=== PATIENT | male | born 1955 | race Caucasian/White ===

== ENCOUNTER 2023-10-28 09:07 | Observation (INO) ==
--- NOTE | 2023-10-28 09:55 | DR.EXTPAIN ---
HPI Time seen Time Seen by Provider: 10/28/23 09:49 PCP Primary Care Physician: JAZ MIJARES HPI Comment HPI Comment: Cyst sacral area that is draining. Started on antibiotic on Saturday for same. Worse today. Complaint/Symptoms Chief Complaint Doctor Comments: History as above. Chief Complaint:: PT STATES HE SAW HIS PRIMARY CARE LAST SATURDAY AND HAD A CYST ON HIS SACRUM ABOVE ANUS. PT WAS GIVEN A PRESCRIPTION FOR AN ANTIBIOTIC AND SALVE. PT STATES IT HAS GOTTEN BIGGER AND IS DRAINING AND IS VERY PAINFUL Source History Provided: Patient Mode of arrival Mode of Arrival: Ambulatory Timing Onset of Chief Complaint: 10/23/23 PMH PMH Past Medical History: Yes Past Medical History: Coronary Artery Disease, Dyslipidemia and Renal Disease Past Medical History Comment: STAGE 3 CKD Past Surgical History: Yes Surgical History: Abdominal Surgery, Angioplasty/Stents and CABG/Valve Surgery Past Surgical History Comment: PACEMAKER Family History History of Family Medical Conditions: Yes Family Medical History: Cancer, Coronary Artery Disease and Hypertension Social History Does patient currently use any type of tobacco product: No Have you used tobacco products in the last 12 months: No Type of Tobacco Use: None Does any household member use tobacco: No Alcohol Use: None Do you use any recreational Drugs:: No Lives With: Dad Lives Where: Home Infectious screening In the last 2 months have you had wt loss of >10#?: NO Have you had fever, night sweats or hemotysis?: No Have you traveled outside the country in the last 6 months?: No Isolation: Standard ROS Review of Systems Constitutional: No Symptoms Reported Eyes: No Symptoms Reported ENTM: No Symptoms Reported Respiratoy: No Symptoms Reported Cardiovascular: No Symptoms Reported Gastrointestinal/Abdominal: No Symptoms Reported Genitourinary: No Symptoms Reported Neurological: No Symptoms Reported Musculoskeletal: Back Pain (sacral abscess, pain and swelling and redness.) Integumentary: No Symptoms Reported Hematologic/Lymphatic: No Symptoms Reported Endocrine: No Symptoms Reported Psychiatric: No Symptoms Reported All Other Systems: Reviewed and Negative PE Vital Signs Vitals: Vital Signs Temperature 97.7 F Pulse Rate 60 Respiratory Rate 20 Respiratory Rate 20 Blood Pressure 108/61 O2 Sat by Pulse Oximetry 96 General Limitations: No Limitations ROR Labs Reviewed 10/28/23 10:45 10/28/23 10:45 Laboratory: WBC 7.4 X10^3/uL (3.6-10.0) 10/28/23 10:45 RBC 4.03 X10^6/uL (4.7-6.0) L 10/28/23 10:45 Hgb 13.1 g/dL (13.5-18.0) L 10/28/23 10:45 Hct 37.8 % (42.0-54.0) L 10/28/23 10:45 MCV 93.7 fL (80.0-100.0) 10/28/23 10:45 MCH 32.5 pg (27.0-34.0) 10/28/23 10:45 MCHC 34.6 g/dL (33.0-35.0) 10/28/23 10:45 RDW 14.6 % (11.6-16.5) 10/28/23 10:45 Plt Count 144 X10^3/uL (150.0-450.0) L 10/28/23 10:45 MPV 9.3 fL (7.4-11.0) 10/28/23 10:45 Neut % (Auto) 82.8 % (42.0-75.0) H 10/28/23 10:45 Lymph % (Auto) 6.0 % (21.0-51.0) L 10/28/23 10:45 Power % (Auto) 10.1 % (0.0-13.0) 10/28/23 10:45 Eos % (Auto) 0.6 % (0.9-2.9) L 10/28/23 10:45 Baso % (Auto) 0.5 % (0.2-1.0) 10/28/23 10:45 Neut # (Auto) 6.1 x10^3/uL (2.2-4.8) H 10/28/23 10:45 Lymph # (Auto) 0.4 X10^3/uL (1.3-2.9) L 10/28/23 10:45 Power # (Auto) 0.7 x10^3/uL (0.3-0.8) 10/28/23 10:45 Eos # (Auto) 0.0 x10^3/uL (0.0-0.2) 10/28/23 10:45 Baso # (Auto) 0.0 X10^3/uL (0.0-0.1) 10/28/23 10:45 Absolute Nucleated RBC 0.1 /100WBC 10/28/23 10:45 Sodium 144 mmol/L (136-145) 10/28/23 10:45 Corrected Sodium TNP 10/28/23 10:45 Potassium 3.5 mmol/L (3.5-5.1) 10/28/23 10:45 Chloride 106 mmol/L (98-107) 10/28/23 10:45 Carbon Dioxide 30.8 mmol/L (21-32) 10/28/23 10:45 BUN 24 mg/dL (7-18) H 10/28/23 10:45 Creatinine 1.57 mg/dL (0.70-1.30) H 10/28/23 10:45 Est GFR (MDRD) Af Amer 57 (>60) L 10/28/23 10:45 Est GFR (MDRD) Non-Af 47 (>60) L 10/28/23 10:45 Glucose 95 mg/dL (65-99) 10/28/23 10:45 Calcium 8.7 mg/dL (8.5-10.1) 10/28/23 10:45 Corrected Calcium 9.7 mg/dL (8.5-10.1) 10/28/23 10:45 Total Bilirubin 1.20 mg/dL (0.2-1.0) H 10/28/23 10:45 AST 82 Units/L (15-37) H 10/28/23 10:45 ALT 109 Units/L (12-78) H 10/28/23 10:45 Alkaline Phosphatase 60 Units/L (46-116) 10/28/23 10:45 Total Protein 7.1 g/dL (6.4-8.2) 10/28/23 10:45 Albumin 2.8 g/dL (3.4-5.0) L 10/28/23 10:45 Globulin 4.3 g/dL (2.5-4.5) 10/28/23 10:45 Albumin/Globulin Ratio 0.7 Ratio (1.1-2.1) L 10/28/23 10:45 Opioid Opioid Risk Tool Age (Chris box if 16-45): No History of Preadolescent Sexual Abuse: No Total: 0 Total Score Risk Category: Low Risk Copyright: [facility] predicting aberrant behaviors Discharge Plan Diagnosis Discharge Problem: Abscess of buttock, Cellulitis Discharge Plan Patient Disposition: 01 HOME, SELF-CARE Condition: Stable Prescriptions: No Action furosemide 40 mg tablet 1 tab PO QDAY carvedilol 25 mg tablet 2 tab PO BID pravastatin 40 mg tablet 1 tab PO QDAY amiodarone 200 mg tablet 1 tab PO QDAY aspirin 81 mg tablet,delayed release (DR/EC) 1 tab PO QDAY ferrous sulfate [FeroSul] 325 mg (65 mg iron) tablet 1 tab PO QDAY lisinopril 10 mg tablet 1 tab PO BID warfarin 5 mg tablet PO digoxin 125 mcg (0.125 mg) tablet 1 tab PO QDAY ergocalciferol (vitamin D2) 1,250 mcg (50,000 unit) capsule PO zolpidem 10 mg tablet 1 tab PO QPM labetalol 100 mg Tablet 100 mg PO QDAY cyclobenzaprine 5 mg tablet 1 tab PO TID PRN tadalafil 20 mg Tablet 20 mg PO QDAY Health Concerns: Post Hospitalization: new medications and changes needed to prevent readmission or further decline. Pt educated and given instructions on all concerns. Plan of Treatment: Continue with present treatment and follow up plan. Pt is to keep follow up appointment as instructed and take medications as ordered. Orders to Discharge Patient Discharge Orders: Transfer (Routine); Ordered 10/28/23 Ordered By: BROOKE BROWNING Follow ups/Referrals Follow ups/Referrals: Jaz Mijares [Primary Care Provider] - 3 days Instructions Stand Alone Forms: Post Hospital Follow Up Care
[2023-10-28] MEDS ORDERED: DILAUDID INJ ONE (10:31)
[2023-10-28] MEDS ORDERED: NS 1,000 ML IV 1,000 ML ONE (10:31)
[2023-10-28] MEDS ORDERED: ZOSYN VIAL 3.375 GRAMS IV ONE (10:31)
[2023-10-28] MEDS ORDERED: NS 100 ML IV 100 ML ONE (10:32)
[2023-10-28] MEDS: NS 1,000 ML IV 1,000 ML IV SCH (11:10)
[2023-10-28] MEDS: DILAUDID INJ IVP ONE (11:10)
[2023-10-28] MEDS: XYLOCAINE 2% and EPINEPHRINE 1:100,000 IJ SCH (11:11)
[2023-10-28] MEDS: ZOSYN VIAL 3.375 GRAMS 3.375 G in NS 100 ML IV 100 ML IV ONE (11:11)
[2023-10-28] MEDS: DILAUDID INJ IM ONE (11:12)
[2023-10-28 11:23] LABS: BASOPHILS % (AUTO) 0.5 % (0.2-1.0); EOSINOPHILS % (AUTO) 0.6 % (0.9-2.9); HEMATOCRIT 37.8 % (42.0-54.0); HEMOGLOBIN 13.1 g/dL (13.5-18.0); LYMPHOCYTES # (AUTO) 0.4 X10^3/uL (1.3-2.9); MEAN CORPUSCULAR HEMOGLOBIN 32.5 pg (27.0-34.0); MEAN CORPUSCULAR HGB CONC 34.6 g/dL (33.0-35.0); MEAN CORPUSCULAR VOLUME 93.7 fL (80.0-100.0); MEAN PLATELET VOLUME 9.3 fL (7.4-11.0); MONOCYTES # (AUTO) 0.7 x10^3/uL (0.3-0.8); MONOCYTES % (AUTO) 10.1 % (0.0-13.0); NEUTROPHILS # (AUTO) 6.1 x10^3/uL (2.2-4.8); NEUTROPHILS % (AUTO) 82.8 % (42.0-75.0); PLATELET COUNT 144 X10^3/uL (150.0-450.0); RED BLOOD COUNT 4.03 X10^6/uL (4.7-6.0); RED CELL DISTRIBUTION WIDTH 14.6 % (11.6-16.5); WHITE BLOOD COUNT 7.4 X10^3/uL (3.6-10.0)
[2023-10-28 11:25] LABS: ALANINE AMINOTRANSFERASE 109 Units/L (12-78); ALBUMIN 2.8 g/dL (3.4-5.0); ALKALINE PHOSPHATASE 60 Units/L (46-116); ASPARTATE AMINO TRANSFERASE 82 Units/L (15-37); BLOOD UREA NITROGEN 24 mg/dL (7-18); CALCIUM 8.7 mg/dL (8.5-10.1); CARBON DIOXIDE 30.8 mmol/L (21-32); CHLORIDE 106 mmol/L (98-107); COR CA(FOR HYPOALB) 9.7 mg/dL (8.5-10.1); CREATININE 1.57 mg/dL (0.70-1.30); GLUCOSE 95 mg/dL (65-99); POTASSIUM 3.5 mmol/L (3.5-5.1); SODIUM 144 mmol/L (136-145); TOTAL PROTEIN 7.1 g/dL (6.4-8.2); eGFR NON BLACK RACES 47 (>60)
[2023-10-28] MEDS ORDERED: ZOFRAN TAB 4 MG PO PRN (15:46)
[2023-10-28] MEDS ORDERED: MOTRIN TAB 600 MG PO PRN (15:46)
[2023-10-28] MEDS ORDERED: NS 250 ML IV 25 ML IV PRN (15:46)
[2023-10-28 16:47] VITALS: BMI 23.5
[2023-10-28] MEDS: ZOSYN VIAL 3.375 GRAMS 3.375 G in NS 100 ML IV 100 ML IV SCH (18:59)
[2023-10-29 04:19] VITALS: TEMP 98.1
[2023-10-29] MEDS: PERCOCET TAB 5/325 MG PO PRN (06:23)
[2023-10-29 06:31] LABS: BASOPHILS % (AUTO) 0.7 % (0.2-1.0); EOSINOPHILS % (AUTO) 0.3 % (0.9-2.9); HEMATOCRIT 34.8 % (42.0-54.0); LYMPHOCYTES # (AUTO) 0.4 X10^3/uL (1.3-2.9); LYMPHOCYTES % (AUTO) 5.7 % (21.0-51.0); MEAN CORPUSCULAR HEMOGLOBIN 32.2 pg (27.0-34.0); MEAN CORPUSCULAR HGB CONC 34.5 g/dL (33.0-35.0); MEAN CORPUSCULAR VOLUME 93.3 fL (80.0-100.0); MEAN PLATELET VOLUME 9.1 fL (7.4-11.0); MONOCYTES # (AUTO) 0.6 x10^3/uL (0.3-0.8); NEUTROPHILS # (AUTO) 5.2 x10^3/uL (2.2-4.8); NEUTROPHILS % (AUTO) 83.3 % (42.0-75.0); PLATELET COUNT 138 X10^3/uL (150.0-450.0); RED BLOOD COUNT 3.73 X10^6/uL (4.7-6.0); RED CELL DISTRIBUTION WIDTH 14.7 % (11.6-16.5); WHITE BLOOD COUNT 6.2 X10^3/uL (3.6-10.0)
[2023-10-29 06:40] LABS: ALANINE AMINOTRANSFERASE 104 Units/L (12-78); ALBUMIN 2.6 g/dL (3.4-5.0); ALKALINE PHOSPHATASE 52 Units/L (46-116); ASPARTATE AMINO TRANSFERASE 69 Units/L (15-37); BLOOD UREA NITROGEN 20 mg/dL (7-18); CARBON DIOXIDE 28.9 mmol/L (21-32); CHLORIDE 110 mmol/L (98-107); COR CA(FOR HYPOALB) 9.1 mg/dL (8.5-10.1); CREATININE 1.36 mg/dL (0.70-1.30); GLUCOSE 105 mg/dL (65-99); MAGNESIUM 1.7 mg/dL (2.0-2.9); POTASSIUM 3.4 mmol/L (3.5-5.1); SODIUM 146 mmol/L (136-145); TOTAL PROTEIN 6.1 g/dL (6.4-8.2); eGFR NON BLACK RACES 56 (>60)
[2023-10-29] MEDS ORDERED: CONSULT PHARMACY - POTASSIUM & MAGNESIUM XX SCH (07:00)
[2023-10-29 07:33] VITALS: RESP 20
[2023-10-29] MEDS: MAG-OX TAB PO SCH (09:45)
[2023-10-29] MEDS: K-DUR TAB 20 MEQ PO SCH (09:46)
[2023-10-29 11:57] VITALS: BP 108/58; PULSE 60; O2SAT 95
== END 2023-10-29 14:30 | disposition home or self-care (01) ==
LOC: ER 09:07 → U 09:07 → MED/SURG 09:07
PROVIDERS: ADMIT Surgery; ATTEND Surgery
DX: L03.317 Cellulitis of buttock; E78.5 Hyperlipidemia, unspecified; N18.30 Chronic kidney disease, stage 3 unspecified; L02.31 Cutaneous abscess of buttock; Z95.0 Presence of cardiac pacemaker; R79.1 Abnormal coagulation profile; I12.9 Hypertensive chronic kidney disease with stage 1 through stage 4 chronic kidney disease, or unspecified chronic kidney disease; I25.10 Atherosclerotic heart disease of native coronary artery without angina pectoris; E83.42 Hypomagnesemia; R74.8 Abnormal levels of other serum enzymes